=== PATIENT | female | born 2000 | race Caucasian/White ===

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

== ENCOUNTER 2019-07-14 07:32 | Emergency (ER) | payer OTHER ==
[2019-07-14 07:48] VITALS: BP 120/70; PULSE 117; TEMP 98; BMI 31.1
[2019-07-14] MEDS ORDERED: ACETAMINOPHEN 325 MG TABLET (FP) PO ONE (07:58)
[2019-07-14] MEDS ORDERED: ONDANSETRON 4 MG/2 ML VIAL IVPUSH ONE (07:59)
[2019-07-14] MEDS ORDERED: SODIUM CHLORIDE 1,000 ML IV STA (07:59)
--- NOTE | 2019-07-14 08:09 | PDOC ---
History of Present Illness - General Chief Complaint: Pain, Acute Stated Complaint: LBP Time Seen by Provider: 07/14/19 07:50 History Source: Patient - History of Present Illness Timing/Duration: reports: getting worse Quality: reports: severe Abdominal Pain Onset Location: reports: generalized abdomen Past History - Past Medical History Allergies/Adverse Reactions: Allergies Allergy/AdvReac Type Severity Reaction Status Date / Time No Known Allergies Allergy Verified 07/14/19 07:41 Home Medications: Ambulatory Orders Famotidine [Pepcid -] 20 mg PO BID #14 tablet 07/14/19 Mag Hydrox/Al Hydrox/Simeth [Mylanta Suspension -] 30 ml PO Q6H #1 bottle Ondansetron HCl [Zofran] 4 mg PO Q8H #12 tablet 07/14/19 Anemia: No Asthma: No Cancer: No Cardiac Disorders: No CVA: No COPD: No CHF: No Dementia: No Diabetes: No GI Disorders: No Disorders: No HTN: No Hypercholesterolemia: No Liver Disease: No Seizures: No Thyroid Disease: No - Reproductive History (#): 1 - Immunization History Immunization Up to Date: Yes - Psycho Social/Smoking Cessation Hx Smoking History: Never smoked Have you smoked in the past 12 months: No Information on smoking cessation initiated: No Hx Alcohol Use: No Drug/Substance Use Hx: No Substance Use Type: Marijuana Hx Substance Use Treatment: No Review of Systems - Review of Systems Constitutional: No: Chills, Fever ABD/GI: Yes: Nausea, Vomiting, Abdominal cramping. No: Blood Streaked Bowels, Constipated, Diarrhea, Rectal Bleeding, Tarry Stools : No: Burning, Dysuria, Discharge, Hematuria *Physical Exam - Vital Signs Last Vital Signs Temp Pulse Resp BP Pulse Ox 98.0 F 117 H 17 120/70 97 07/14/19 07:34 07/14/19 07:34 07/14/19 07:34 07/14/19 07:34 07/14/19 07:34 - Physical Exam General Appearance: Yes: Appropriately Dressed, Mild Distress HEENT: positive: Normal Voice Neck: positive: Supple Respiratory/Chest: negative: Respiratory Distress Gastrointestinal/Abdominal: positive: Normal Bowel Sounds, Tender (mostly to epigastrium, periumbilicus and R mid abd, no ttp to RUQ or over mcburneys), Soft. negative: Distended, Guarding, Rebound Musculoskeletal: negative: CVA Tenderness Integumentary: positive: Dry, Warm Neurologic: positive: Fully Oriented, Alert, Normal Mood/Affect ED Treatment Course - LABORATORY CBC & Chemistry Diagram: 07/14/19 08:35 07/14/19 08:35 Medical Decision Making - Medical Decision Making 07/14/19 08:03 18-year-old female , here with severe bilateral lower back pain that started last night and radiates R mid abd and epigastrium. Also reports n/v and dizziness. No dysuria, urinary frequency, hematuria, vag discharge, change in bowel movements, f/c. States the last time she had similar symptoms was when she had a kidney infection during her . LMP was last month and normal per patient. Is sexually active and does not use contraception. see exam R/o vs biliary vs appy vs UTI/pyelo, less likely torsion, renal colic or pancreatitis Exam remarkable for tachycardia to 117 with poorly localized tenderness on abdominal exam and no overt CVAT -pain control -zofran -IVF -ua/preg -labs 07/14/19 09:34 UA/preg and labs unremarkable. On reassessment, patient reports feeling better after receiving meds but has ttp to epigastrium and RLQ on rpt exam. Rpt HR 91. Will get CT r/o appy at this time 07/14/19 11:29 CT negative for obvious signs of appendicitis but has some nonspecific findings such as hyperemia/enhancement of gallbladder wall without thickening or stones. Also seen with fluid-filled, slightly dilated small bowel loops which may indicate ileus. There is a simple cyst in the L ovary and a possible right ovarian simple cyst w/ some free fluid in [place]. Of note, pt has no pelvic pain and has no suprapubic ttp on exam. Patient reports feeling significantly better at this time with no pain or nausea/vomiting. Appears well at bedside. Will get RUQ/pelvic US for further eval and reassess 07/14/19 14:41 RUQ sono read as > 1 cm gallstone w/ no e/o acute kentrell and mild fatty liver. Pelvic ultrasound read as b/l simple ovarian cysts w/ no e/o torsion. On reassessment patient asymptomatic with benign abdomen on rpt exam. Had lengthy discussion with patient to inform her that the cause of her sxs is not entirely clear at this time but that we have essentially ruled out any serious conditions. Will dc w/ rx for trial of GI cocktail in the case of ? gastritis as d/w pt. Patient told to return to ED if symptoms worsened. Discharge - Discharge Information Problems reviewed: Yes Clinical Impression/Diagnosis: Abdominal pain Qualifiers: Abdominal location: generalized Qualified Code(s): R10.84 - Generalized abdominal pain Nausea and vomiting Qualifiers: Vomiting type: unspecified Vomiting Intractability: non-intractable Qualified Code(s): R11.2 - Nausea with vomiting, unspecified Condition: Improved Disposition: HOME - Additional Discharge Information Prescriptions: Famotidine [Pepcid -] 20 mg PO BID #14 tablet Mag Hydrox/Al Hydrox/Simeth [Mylanta Suspension -] 30 ml PO Q6H #1 bottle Ondansetron HCl [Zofran] 4 mg PO Q8H #12 tablet - Follow up/Referral Referrals: Erna Antonio MD [Primary Care Provider] - - Patient Discharge Instructions Additional Instructions: The cause of your symptoms are unclear at this time but we have prescribed several GI meds to take as directed If your symptoms recur and or worsen, please return to the ER, otherwise follow- up with your PMD - Post Discharge Activity Work/Back to School Note: Back to School
[2019-07-14] MEDS ORDERED: ONDANSETRON 4 MG/2 ML VIAL ONE (08:27)
[2019-07-14] MEDS ORDERED: ACETAMINOPHEN 1000 MG/100 ML VIAL (NON FORMULARY) IVPB ONE (08:34)
[2019-07-14] MEDS ORDERED: ACETAMINOPHEN INJECTION 100 ML IVPB ONE (08:39)
[2019-07-14 08:51] LABS: BASO % 0.2 % (0-2.0); EOS % 0.7 % (0-4.5); HEMATOCRIT 41.9 % (32.4-45.2); HEMOGLOBIN 13.8 GM/dL (10.7-15.3); LYMPH % 6.3 % (8-40); MCH 27.6 pg (25.7-33.7); MEAN CELL VOLUME 83.9 fl (80-96); MEAN PLT VOLUME 9.4 fl (7.5-11.1); NEUT % 86.8 % (42.8-82.8); PLATELET COUNT 200 K/MM3 (134-434); RBC 4.99 M/mm3 (3.60-5.2); RDW 13.7 % (11.6-15.6); WHITE BLOOD COUNT 11.3 K/mm3 (4.0-10.0)
[2019-07-14 08:53] LABS: PH,URINE >= 9.0 (5.0-8.0); URINE APPEARANCE CLEAR; URINE BILIRUBIN NEGATIVE (NEGATIVE); URINE COLOR YELLOW; URINE GLUCOSE (UA) NEGATIVE (NEGATIVE); URINE KETONE NEGATIVE (NEGATIVE); URINE LEUK ESTERASE NEGATIVE (NEGATIVE); URINE NITRITE NEGATIVE (NEGATIVE); URINE PROTEIN NEGATIVE (NEGATIVE)
[2019-07-14 09:19] LABS: ALBUMIN 3.8 g/dl (3.4-5.0); BILIRUBIN,TOTAL 0.7 mg/dL (0.2-1); BLOOD UREA NITROGEN 14.8 mg/dL (7-18); CALCIUM 9.1 mg/dL (8.5-10.1); POTASSIUM 4.6 mmol/L (3.5-5.1); TOT PROT 7.3 g/dl (6.4-8.2)
== END 2019-07-14 15:25 | disposition home or self-care (01) ==
LOC: JER 07:32
PROC: 3E033NZ Introduction of Analgesics, Hypnotics, Sedatives into Peripheral Vein, Percutaneous Approach (ICD-10-PCS; principal; 2019-07-14)
PROC: 3E033GC Introduction of Other Therapeutic Substance into Peripheral Vein, Percutaneous Approach (ICD-10-PCS; 2019-07-14)
DX: R10.84 Generalized abdominal pain (principal); R11.2 Nausea with vomiting, unspecified
CPT/HCPCS: 36415; 74177-TC; 76705-TC; 76830-TC; 80053; 81003; 83690; 84703; 85025; 87086; 87491; 87591; 96374; 96375; 99283-25; J0131; J7030; Q9967

== ENCOUNTER 2021-08-01 00:09 | Emergency (ER) | payer OTHER ==
[2021-08-01 01:09] VITALS: BMI 34.9
[2021-08-01 04:08] VITALS: BP 130/78; PULSE 100; TEMP 98.9
[2021-08-04 02:06] LABS: SARS-CoV-2 NAA Detected (Not Detected)
== END 2021-08-01 04:07 | disposition home or self-care (01) ==
LOC: JER 00:09
DX: O26.892 Other specified pregnancy related conditions, second trimester (principal); R07.0 Pain in throat; Z3A.26 26 weeks gestation of pregnancy; Z11.52 Encounter for screening for COVID-19
CPT/HCPCS: 87804; 99283-25; C9803; U0003; U0005